=== PATIENT | female | born 1995 | race African-American/Black ===

== ENCOUNTER 2016-12-19 09:41 | Emergency (ER) | payer BC, OTHER ==
[~2016-12-19 09:41] MED LIST: BACTRIM DS TABL1 TA1 PO; BACTROBAN22 GM TP; IBUPROFEN800 MG PO; MACROBID100 MG PO; NO MEDICATIONS; PEPCID PO; PRENATAL1 TA1 PO; PYRIDIUM100 MG PO; TYLENOL #3 PO; VITAMIN D400 UNI2 PO; VOLTAREN75 MG PO
[2016-12-19 10:19] LABS: URINE SOURCE CLEAN CATCH
[2016-12-19 10:22] LABS: MICRO INDICATED? YES; URINE APPEARANCE CLEAR; URINE BILIRUBIN NEG (NEG); URINE BLOOD 1+ (NEG); URINE COLOR YELLOW; URINE GLUCOSE NEG (NORM); URINE KETONE NEG (NEG); URINE LEUKOCYTE ESTERASE 1+ (NEG); URINE NITRATE NEG (NEG); URINE PROTEIN TRACE (NEG); URINE SPECIFIC GRAVITY 1.015 (1.003-1.035)
[2016-12-19 10:28] LABS: CULTURE INDICATED? YES; URINE BACTERIA 1+ (NEG); URINE MUCUS PRESENT; URINE SQUAMOUS EPITHELIAL CELL MODERATE /[HPF]; URINE WBC 25-50 /[HPF] (0-5)
== END 2016-12-19 11:46 | disposition home or self-care (01) ==
LOC: SED 09:41
PROVIDERS: Emergency Medicine
DX: G44.209 Tension-type headache, unspecified, not intractable (principal); G43.909 Migraine, unspecified, not intractable, without status migrainosus; F17.200 Nicotine dependence, unspecified, uncomplicated
CPT/HCPCS: 81003; 84703; 87086; 87088; 87186; 99283